=== PATIENT | male | born 1935 | race Caucasian/White ===

== ENCOUNTER 2016-10-01 21:56 | Emergency (ER) | payer MEDICARE ==
[~2016-10-01] VITALS: Ht 177.8 cm; Wt 72.6 kg
[2016-10-01 22:10] VITALS: BP 167/77
[2016-10-01] MEDS ORDERED: METH4TAB2 PO (23:08)
--- NOTE | 2016-10-01 23:08 | PHYS DOC ---
Past Medical History Past Medical History: No Pertinent History Past Surgical History: Appendectomy, Tonsillectomy, Other Additional Past Surgical Histo: RT KNEE, SEPTOPLASTY Alcohol Use: None Drug Use: None Adult General Chief Complaint Chief Complaint: SKIN RASH/ABSCESS HPI HPI Patient is a 81 year old male who presents with complaint of rash. Patient states that his symptoms have been present over the past 54 hours. The patient states that he started getting a red itchy rash along his abdomen and states that it has been spreading to his legs and his arms. Patient states he has been taking hydrocortisone cream and Benadryl with no relief in symptoms. The patient states that he has been taking amoxicillin over the past several days but has had no other medication changes. Patient states that he has had amoxicillin in the past with no history of allergic reaction. Patient denies any associated shortness of breath, throat swelling, nausea, or vomiting. Patient came to the emergency department for evaluation due to the spread of his rash. Review of Systems Review of Systems Constitutional: Denies fever or chills [] Eyes: Denies change in visual acuity, redness, or eye pain [] HENT: Denies nasal congestion or sore throat [] Respiratory: Denies cough or shortness of breath [] Cardiovascular: Denies chest pain or edema [] GI: Denies abdominal pain, nausea, vomiting, bloody stools or diarrhea [] : Denies dysuria or hematuria [] Musculoskeletal: Denies back pain or joint pain [] Integument: Skin rash [] Neurologic: Denies headache, focal weakness or sensory changes [] Current Medications Current Medications Current Medications Medications (Trade) Dose Ordered Sig/[facility] Start Time Stop Time Status Last Admin Dose Admin Dexamethasone Sodium Phosphate (Decadron) 12 mg 1X ONCE 10/01/16 23:30 10/01/16 23:31 DC 10/01/16 23:27 12 MG Allergies Allergies Allergies Coded Allergies Type Severity Reaction Last Updated Verified No Known Drug Allergies 10/01/16 No Physical Exam Physical Exam Constitutional: Alert, afebrile, no acute distress. [] HENT: Normocephalic, atraumatic, bilateral external ears normal, oropharynx moist, no oral exudates, nose normal. [] Eyes: PERRLA, EOMI, conjunctiva normal, no discharge. [] Neck: Normal range of motion, no tenderness, supple, no stridor. [] Cardiovascular:Heart rate regular rhythm, no murmur [] Lungs & Thorax: Bilateral breath sounds clear to auscultation [] Abdomen: Bowel sounds normal, soft, no tenderness, no masses, no pulsatile masses. [] Skin: Warm, dry, diffuse urticarial lesions present on the trunk, neck, bilateral upper and lower extremities. [] Back: No tenderness, no CVA tenderness. [] Extremities: No tenderness, no cyanosis, no clubbing, ROM intact, no edema. [] Neurologic: Alert and oriented X 3, normal motor function, normal sensory function, no focal deficits noted. [] Current Patient Data Vital Signs Vital Signs Date Time Temp Pulse Resp B/P (MAP) Pulse Ox O2 Delivery O2 Flow Rate FiO2 10/01/16 22:10 97.7 66 18 96 Room Air 97.7 EKG EKG Not performed [] Radiology/Procedures Radiology/Procedures Not performed [] Course & Med Decision Making Course & Med Decision Making Pertinent Labs and Imaging studies reviewed. (See chart for details) Patient's rash appears consistent with urticarial rash. Due to diffuse spread of rash, the patient will require treatment with oral steroids. The patient will be placed on Medrol Dosepak for treatment. Advised to continue on Benadryl as needed for itching. Advised follow-up with primary doctor in 3 days for reevaluation and return to emergency department for any worsening symptoms. Patient voiced understanding and in agreement with treatment plan. Dragon Disclaimer Dragon Disclaimer This electronic medical record was generated, in whole or in part, using a voice recognition dictation system. Departure Departure Impression: Primary Impression: Urticaria Disposition: 01 HOME, SELF-CARE Condition: IMPROVED Referrals: VICKY LUIS Jr, MD (PCP) Patient Instructions: Hives Additional Instructions: Follow-up to primary doctor in 3 days of symptoms are not improving. Return to emergency department for any worsening symptoms. Scripts Methylprednisolone (MEDROL) 4 Mg Tab.ds.pk 1 PKG PO UD, #1 PKG Prov: ROBERT MELTON MD 10/01/16 ROBERT MELTON MD Oct 01, 2016 23:08
[2016-10-01] MEDS ORDERED: DEXAMETHASONE SOD PHOS 4 MG/ML VIAL IM ONE (23:30)
== END 2016-10-01 23:31 | disposition home or self-care (01) ==
LOC: ER 21:56
DX: L50.9 Urticaria, unspecified (principal); Z90.49 Acquired absence of other specified parts of digestive tract
CPT/HCPCS: 96372; 99283; J1100